=== PATIENT | male | born 1990 | race Caucasian/White ===

== ENCOUNTER 2017-01-06 10:01 | Emergency (ER) | payer OTHER ==
[~2017-01-06] VITALS: Ht 188 cm; Wt 198.9 kg
[~2017-01-06 10:01] MED LIST: CLARITIN10 MG PO; ENDOCET 5-3251 EACH PO; MOTRIN800 MG PO; OXAYDO5 MG PO; PREDNISONE50 MG PO; PRILOSEC40 MG PO; RANITIDINE HCL150 M1 PO; ROBAXIN500 MG PO; ULTRAM50 MG PO; VASHE WOUND TH475 ML IR; VICODIN,LORT1 TABLET PO
[2017-01-06] MEDS ORDERED: MOTRIN600 MG PO (11:40)
[2017-01-06] MEDS ORDERED: VENTOLIN HFA18 GM IH (11:40)
[2017-01-06 12:17] VITALS: BP 134/79
== END 2017-01-06 12:18 | disposition home or self-care (01) ==
LOC: EME 10:01
DX: R07.9 Chest pain, unspecified (principal); J45.901 Unspecified asthma with (acute) exacerbation; K21.9 Gastro-esophageal reflux disease without esophagitis
CPT/HCPCS: 71020; 93005; 94640; 99281; 99284

== ENCOUNTER 2017-12-03 12:59 | Emergency (ER) | payer OTHER ==
[~2017-12-03] VITALS: Ht 188 cm; Wt 204.6 kg
[~2017-12-03 12:59] MED LIST changes: +MOTRIN600 MG PO; +VENTOLIN HFA18 GM IH
[2017-12-03 13:53] LABS: BASOPHIL (%) 0.3 % (0-1); EOSINOPHIL (%) 0.4 % (0-5); HEMATOCRIT 37.2 % (38.0-50.0); HEMOGLOBIN 12.2 G/DL (12.5-16.6); IMMATURE GRANULOCYTE (%) 0.7 % (0.0-0.7); LYMPHOCYTE (%) 19.7 % (15-42); MCH 27.5 PG (29.0-34.0); MCHC 32.8 G/DL (30.0-36.0); MONOCYTE (%) 6.8 % (3-12); MONOCYTE COUNT 0.7 K/uL (0-0.8); NEUTROPHIL (%) 72.1 % (45-76); NEUTROPHIL COUNT 7.2 K/uL (1.8-6.4); PLATELET COUNT 257 K/uL (156-360); RBC DIS.WIDTH-CV 14.4 % (11.8-14.6); RED BLOOD COUNT 4.43 M/uL (4.00-5.50)
[2017-12-03 14:03] LABS: CHLORIDE 107 mEq/L (99-109); POTASSIUM 4.3 mEq/L (3.7-5.4); SODIUM 140 mEq/L (136-147)
[2017-12-03 14:04] LABS: MAGNESIUM 2.2 mg/dL (1.3-2.7)
[2017-12-03 14:05] LABS: GLUCOSE 111 mg/dL (70-99)
[2017-12-03 14:09] LABS: CREATININE 1.1 mg/dL (0.6-1.3); GFR ESTIMATE (CALCULATED) > 59 mL/min/ (58.99-99999)
[2017-12-03 14:10] LABS: UREA NITROGEN (BUN) 14 mg/dL (9-23)
[2017-12-03 14:12] LABS: TROP-I INTERPRETATION NEGATIVE; TROPONIN-I < 0.01 ng/mL (0.0-0.30)
[2017-12-03] MEDS ORDERED: VENTOLIN HFA18 GM IH (17:53)
[2017-12-03 18:16] VITALS: BP 118/72
== END 2017-12-03 18:18 | disposition home or self-care (01) ==
LOC: EME 12:59
PROVIDERS: Emergency Medicine
DX: R42 Dizziness and giddiness (principal); J45.901 Unspecified asthma with (acute) exacerbation; R07.9 Chest pain, unspecified; R11.0 Nausea; K76.0 Fatty (change of) liver, not elsewhere classified
CPT/HCPCS: 71046; 71275; 80048; 83735; 84484; 85025; 85379; 93005; 94640; 99281; 99285; J7040